=== PATIENT | male | born 1950 | race Caucasian/White ===

== ENCOUNTER 2018-02-22 09:14 | Emergency (ER) | payer MEDICARE, OTHER, SELFPAY ==
[2018-02-22 09:25] VITALS: BP 159/99; PULSE 68; RESP 18; TEMP 36.6; O2SAT 100
--- NOTE | 2018-02-22 10:11 | ED_ITS ---
HPI - Fall General Chief Complaint: Fall Stated Complaint: Fall and cut head Time Seen by Provider: 02/22/18 09:58 Source: patient and family Mode of arrival: ambulatory Limitations: no limitations History of Present Illness HPI Narrative: Patient was stepping out of the shower this morning when his right leg gave out and he fell, striking his head on the tile floor in his bathroom. Patient denies loss of consciousness. He states he was not injured in any other way. He has a laceration over the right superolateral orbital rim. Patient states that he has a longstanding history of a right lower extremity weakness, and had generally ambulates with crutches. He states that injury was about 2 hr ago, and he denies any new neurologic deficits since. complaint: fall Onset (ago): hour(s) Fall from: standing Fall witnessed: no Place fall occurred: home Loss of consciousness: none Prolonged down time: no Symptoms prior to fall: none Context: other ( see above) Location of injury: head Severity: mild Severity scale (1-10): 1 Associated symptoms (after fall): denies Related Data Home Medications Medication Instructions Recorded Confirmed celecoxib [Celebrex] 200 mg PO BID #0 cap 02/27/13 02/22/18 nadolol [Corgard] 40 mg OR Q DAY #0 12/20/15 02/22/18 cholecalciferol (vitamin D3) 2,000 unit PO DAILY 02/22/18 02/22/18 [Vitamin D3] oxycodone 1 tab PO Q6-8H PRN 02/22/18 02/22/18 testosterone cypionate 1 dose IM Q2W 02/22/18 02/22/18 Previous Rx's Medication Instructions Recorded naratriptan 2.5 mg tablet 2.5 mg PO .COMPLEX PRN #12 tab 01/06/18 Allergies Allergy/AdvReac Type Severity Reaction Status Date / Time Penicillins [PENICILLINS] Allergy Intermediate Verified 01/06/18 14:38 Review of Systems Review of Systems All systems reviewed & are unremarkable except as noted in HPI and below Constitutional Denies chills, Denies fever(s), Denies lethargy and Denies weakness Eyes Denies change in vision, Denies eye discharge, Denies irritation and Denies loss of vision ENT Ears, Nose, Mouth, and Throat: Denies change in voice, Denies neck pain and Denies sore throat Comments: facial laceration Cardiovascular Denies chest pain, Denies irregular heart rhythm, Denies lightheadedness, Denies palpitations, Denies dyspnea, Denies dyspnea on exertion and Denies orthopnea Respiratory Denies cough, Denies dyspnea, Denies dyspnea on exertion and Denies wheezing Gastrointestinal Gastrointestinal: Denies abdominal pain, Denies change in bowel habits, Denies diarrhea, Denies nausea and Denies vomiting Genitourinary Denies hematuria, Denies flank pain, Denies urinary incontinence and Denies urinary urgency Musculoskeletal Denies neck pain Integumentary/Breasts Denies pruritus, Denies erythema, Denies rash and Denies wounds Neurologic Denies confusion, Denies loss of vision and Denies weakness Psychiatric Denies anxiety, Denies confusion, Denies depression, Denies homicidal ideation and Denies suicidal ideation Endocrine Denies palpitations Hematologic/Lymphatic Denies easy bruising Allergic/Immunologic Denies wheezing Exam Initial Vital Signs Initial Vital Signs: Vital Signs Temperature 97.8 F 02/22/18 09:25 Pulse Rate 68 02/22/18 09:25 Respiratory Rate 18 02/22/18 09:25 Blood Pressure 159/99 H 02/22/18 09:25 Pulse Oximetry 100 02/22/18 09:25 Const General: cooperative and well developed Nutritional Appearance: well nourished Orientation: alert, awake, oriented x3 and not confused [facility] Head: normocephalic, No Soriano's sign, laceration (1 cm, superolateral orbital rim, with 2 cm diameter hematoma/swelling.), No palpable skull fracture and No periorbital ecchymosis Ears: external ears normal and TM's normal bilaterally Nose: external nose normal and No nasal discharge Face and sinus: sinuses nontender, face symmetric and No dry mucous membranes Mouth: oral mucosae normal and moist mucous membranes Teeth and gingiva: dentition normal Eyes General: appearance normal, both eyes and all related structures Eyelids: eyelids normal Conjunctivae: conjunctivae normal Sclera: sclerae normal Pupils: PERRL EOM: EOM intact bilaterally Neck Neck: normal visual inspection, trachea midline, No lymphadenopathy, No midline deformity and No JVD Lymphatic: No lymphedema Chest Chest: normal inspection of the chest Resp Effort & Inspection: normal respiratory effort, able to speak in complete sentences, no respiratory distress and no use of accessory muscles Auscultation: clear to auscultation bilaterally, no rales, no rhonchi and no wheezes Cardio Rate: regular rate Rhythm: regular rhythm Heart Sounds: no click, no gallops, no murmurs and no rubs Pulses: normal peripheral pulses GI Inspection: non-distended Palpation: soft, no hepatosplenomegaly, No guarding, No pulsatile mass and No tender Auscultation: normal bowel sounds Back/Spine/Pelvis Back: No CVA tenderness Cervical Spine: cervical ROM normal and No pain with cervical ROM Thoracic/Lumbar Spine: thoracic and lumbar spine normal to inspection Skin General: no rashes or lesions noted, No jaundice and No petechiae Neuro General: alert, oriented x3, gait normal and no focal motor deficits Speech: speech normal Extrem General: full ROM, no clubbing, cyanosis or edema, no pedal edema and no calf tenderness Psych Appearance: well kempt Mental Status: mental status grossly normal Attitude: cooperative Thought Content: normal and suicidality Judgment: judgment good [facility] Medical History HTN (hypertension) (Acute) Arthritis (Acute) Surgical History No pertinent past surgical history (Acute) Social History Smoking Status: Never smoker Procedures Laceration Repair Laceration 1: Site: face Side (If applicable): right Size (cm): 1 Description: linear Depth: simple, single layer Pre-repair: wound explored and irrigated extensively Skin layer closed with: other (Tissue adhesive and Steri-Strips) Course Course Narrative: Patient stated he had an allergy to numbing agents, and preferred to have adhesive repair of the laceration of possible. I felt that, given the characteristics of his laceration, this was reasonable. The laceration was repaired with Dermabond and Steri-Strips with good wound edge approximation. We have discussed home management of the wound, as well as the usual indications for return. Patient is neurologically intact, has a very focal injury, and I do not feel imaging is indicated at this time. Additionally he is not on any anticoagulants which would put him greater risk for intracranial hemorrhage. Vital Signs - 8 hr 02/22/18 09:25 Temperature 97.8 F Pulse Rate 68 Respiratory Rate 18 Blood Pressure 159/99 H Pulse Oximetry 100 MDM - Fall Medical Records Attestation: I reviewed the patient's medical records. Discharge Plan Departure Patient Disposition: Home Clinical Impression: Fall, Laceration Discharge Date/Time: 02/22/18 11:31 Interventions: ED Discharge Assessment Last Done: 02/22/18 11:30 Instructions: DI for Laceration Repair With Dermabond Prescriptions: No Action celecoxib [Celebrex] 200 MG capsule 200 mg PO BID Qty: 0 RF: 0 nadolol [Corgard] 20 MG tablet 40 mg OR Q DAY Qty: 0 RF: 0 oxycodone 5 mg tablet 1 tab PO Q6-8H PRN (Reason: pain) RF: 0 testosterone cypionate 200 mg/mL oil 1 dose IM Q2W RF: 0 cholecalciferol (vitamin D3) [Vitamin D3] 2,000 unit Capsule 2,000 unit PO DAILY RF: 0 naratriptan 2.5 mg tablet 2.5 mg PO .COMPLEX PRN (Reason: migraine headache) Qty: 12 RF: 11 Referrals: Oneida Chance PA-C [Primary Care Provider] -
[2018-02-22 10:15] VITALS: BP 129/80; PULSE 71; RESP 12; O2SAT 95
[2018-02-22 11:26] VITALS: BP 110/72; PULSE 61; RESP 14; O2SAT 97
== END 2018-02-22 11:31 | disposition home or self-care (01) ==
PROVIDERS: Emergency Provider Emergency Medicine; PCP Physician Assistant
DX: S01.81XA Laceration without foreign body of other part of head, initial encounter (principal); W01.198A Fall on same level from slipping, tripping and stumbling with subsequent striking against other object, initial encounter
CPT/HCPCS: 99282; 99283

== ENCOUNTER → 2020-08-17 11:04 | Outpatient (CLI) | payer MEDICARE, OTHER, SELFPAY ==
[2020-08-17 13:22] LABS: COVID19 -Nasal RAPID Negative (Negative)
== END ==
PROVIDERS: PCP Physician Assistant; Visit Provider Physician Assistant
DX: Z20.822 Contact with and (suspected) exposure to COVID-19 (principal)
CPT/HCPCS: 87635; C9803

== ENCOUNTER → 2020-09-05 08:44 | Outpatient (CLI) | payer MEDICARE, OTHER, SELFPAY ==
[2020-09-05 10:01] LABS: Creatine Kinase 67 U/L (55-170)
== END ==
PROVIDERS: PCP Physician Assistant; Referring Provider Internal Medicine Cardiovascular Disease; Visit Provider Internal Medicine Cardiovascular Disease
DX: E78.5 Hyperlipidemia, unspecified (principal)
CPT/HCPCS: 36415; 82550

== ENCOUNTER → 2020-10-29 08:48 | Outpatient (CLI) | payer MEDICARE, OTHER, SELFPAY ==
[2020-10-29 10:10] LABS: Add Manual Diff / Slide Review NO; Basophils Absolute Auto 0 /uL (0-100); Basophils Percent Auto 0.6 % (0-2); Eosinophils Absolute Auto 100 /uL (0-450); Eosinophils Percent Auto 1.8 % (2-4); Hematocrit 42.3 % (41-53); Hemoglobin 14.1 g/dL (13.5-17.5); Lymphocytes Absolute Auto 1000 /uL (1100-4500); Lymphocytes Percent Auto 17.7 % (25-40); Mean Corpuscular HGB Conc 33.3 % (30-36); Mean Corpuscular Volume 93.1 fL (80-100); Monocytes Absolute Auto 600 /uL (0-900); Monocytes Percent Auto 9.7 % (3-14); Neutrophils Absolute Auto 4100 /uL (1500-7000); Neutrophils Percent Auto 70.2 % (50-75); Platelet Count 174 X10^3/uL (150-400); Red Blood Cell Count 4.54 X10^6/uL (4.5-5.9); Red Cell Distribution Width 13.5 % (11.6-14.8); White Blood Cell Count 5.8 X10^3/uL (4.5-11.0)
[2020-10-29 10:58] LABS: Blood Urea Nitrogen 17 mg/dL (9-20); Calcium 9.5 mg/dL (8.4-10.2); Carbon Dioxide 27 mmol/L (22-32); Chloride 102 mmol/L (98-107); Estimated Glomerular Filt Rate > 60.0 mL/min (>60); Glucose 115 mg/dL (80-110); HEMOLYSIS 20 (0-50); Potassium 4.7 mmol/L (3.4-5.1); Sodium 138 mmol/L (137-145)
== END ==
PROVIDERS: PCP Family Medicine; Referring Provider Internal Medicine Cardiovascular Disease; Visit Provider Internal Medicine Cardiovascular Disease
DX: I25.10 Atherosclerotic heart disease of native coronary artery without angina pectoris (principal)
CPT/HCPCS: 36415; 80048; 85025

== ENCOUNTER → 2020-12-04 14:36 | Outpatient (CLI) | payer MEDICARE, OTHER, SELFPAY ==
--- NOTE | 2020-12-04 14:38 | DI.ECHO.S_ITS ---
[facility] +---------+ : : [address] : : : : [id number] : : : : Phone: [phone] Echocardiogram Report + + :Name: ALIS THORPE Study Date: 12/04/2020 Height: 70.5 in: [facility] ReadingLocation: Weight: 162 lb : : Gender: Male BSA: 1.9 m2 : :: 1950 Age: 70 yrs BP: 151/85 mmHg: :Reason For Study: ISCHEMIC CARDIOMYOPATHY : :Ordering Physician: LUIS A, : :MARA Performed By: Beatrice Pettit : :Referring: MARA GUNN : + + Interpretation Summary The left ventricle is normal in size and wall thickness. The ejection fraction is estimated to be 55-60%. Compared to the prior exam, the left ventricular function is improved. Compared to the prior exam, the apical wall motion abnormality is improved. The right ventricle is normal in size and function. Ascending aorta diameter 3.4 cm. Previously it was 3.6 cm. Procedure: A two-dimensional transthoracic echocardiogram with color flow and Doppler was performed in limited views only to assess ejection fraction and ascending aorta.. The study quality was technically adequate. Comparison is made with the echocardiogram of 06/07/2019. The patient was in sinus bradycardia with heart rates between 54-58 bpm during the exam. Left Ventricle: The left ventricle is normal in size and wall thickness. There is no thrombus. The ejection fraction is estimated to be 55-60%. Compared to the prior exam, the left ventricular function is improved. There are no focal wall motion abnormalities. Compared to the prior exam, the apical wall motion abnormality is improved. Right Ventricle: The right ventricle is normal in size and function. Atria: The left atrial size is normal. The left atrium has remained unchanged in size since the prior echo exam. Right atrial size is normal. Great Vessels: The ascending aorta is at the upper limits of normal in size. Pericardium/ Pleura There is no pericardial effusion. There is no pleural effusion. MMode/2D Measurements & Calculations LVIDd: 4.3 cm asc Aorta Diam: 3.4 cm LVIDs: 3.2 cm FS: 24.5 % IVSd: 0.97 cm LVPWd: 0.81 cm LV degroot. diameter/BSA (cm/m^2): 2.2 LV sys. diameter/BSA (cm/m^2): 1.7 LA A2 area: 11.4 cm2 RA long axis: 4.6 cm LA A4 area: 11.5 cm2 RA area: 13.4 cm2 LA length (vol): 4.0 cm RA vol: 33.6 ml LA vol: 28.0 ml RA : 17.5 ml/m2 LA vol index: 14.6 ml/m2 RVD1 (basal): 3.6 cm TAPSE: 1.7 cm Reading Physician:12:04 PM
== END ==
PROVIDERS: PCP Family Medicine; Referring Provider Internal Medicine Cardiovascular Disease; Visit Provider Internal Medicine Cardiovascular Disease
DX: I25.5 Ischemic cardiomyopathy (principal)
CPT/HCPCS: 93307

== ENCOUNTER 2021-02-06 08:30 | Outpatient (RCR) | payer MEDICARE, OTHER, SELFPAY ==
--- OUTSIDE RECORDS SUMMARY | 2020-12-26 08:21 | XMS_ITS | Referral Summary ---
:1950 Author Organization [facility] Address [address] [place] [address] Care Team Providers Name Role Phone Sreedhar Primary Care Provider Reason for Referral Rehabilitation - Outpatient (Routine) Status Reason Specialty Diagnoses / Referred By Referred To Procedures Contact Contact Closed Cardiac Rehabilitation Diagnoses History of heart artery stent History of acute anterior wall [place] Dayna [facility] MD Lulú [address] [place] [address] [phone] [id number] [place], [place] Phone: [phone] Electronically signed by Miguel Mcintosh MD at Reason for Visit Reason Onset Date Comments Forms/questionnaires 08/15/2020 Encounter Details Date Type Department Care Team Description 08/15/[address] [facility] Miguel Mcintosh , Forms/questionnaires Cardiology Camacho LIRIANO [address] [place] [address], [address] [place] [phone] [address] [place], [place] [id number] Allergies Active Allergy Reactions Severity Noted Date Comments Buprenorphine Ketorolac Monosodium Glutamate Nsaids (Non-Steroidal 09/19/2014 Anti-Inflammatory Drug) Penicillins Anaphylaxis, Rash High 02/09/2014 Has done o k with Keflex. ?? Has done ok wit h Keflex. ?? Pregabalin 01/10/2016 Other reaction( s): Other (Comment) intolerance Sodium Metabisulfite Other (see comments) Found in food and anesthetics (fo und in lidocaine per p t). Thready, rapid breath and SALES MGR symptom s (tremors, shake s, sometimes rash) Tolmetin 09/19/2014 documented as of this encounter (statuses as of 12/25/2020) Medications Medication Sig Dispensed Refills Start Date End Date Status cholecalciferol, Take 1 0 Act lori vitamin D3, 2,000 tablet by unit capsule mouth daily oxyCODONE TAKE ONE 0 12/09/2016 Active (ROXICODONE) 5 mg TABLET BY immediate release MOUTH EVERY tablet 6 TO 8 HOURS IF NEEDED FOR PAIN FOR 30 DAYS coenzyme Q10 400 Take 1 0 Act lori mg capsule tablet by mouth daily aspirin 81 mg Take 1 30 tablet 3 06/11/2020 Activ e chewable tablet tablet (81 2 mg total) by mouth daily nitroglycerin Place 1 90 tablet 1 06/10/2020 Activ e (NITROSTAT) 0.4 mg tablet (0.4 2 SL tablet mg total) under the tongue every 5 (five) minutes as needed for chest pain metoprolol Take 1 180 tablet 3 06/24/2020 Active succinate XL tablet (50 2 (TOPROL-XL) 50 mg mg total) by 24 hr tablet mouth 2 (two) times a day rosuvastatin Take 1 90 tablet 3 06/24/2020 Active (CRESTOR) 5 mg tablet (5 mg 2 tablet total) by mouth nightly lisinopriL Take 1 90 tablet 3 06/24/2020 Active (PRINIVIL) 2.5 mg tablet (2.5 2 tablet mg total) by mouth nightly clopidogreL Take 1 90 tablet 3 06/24/2020 Active (PLAVIX) 75 mg tablet (75 2 tablet mg total) by mouth daily evolocumab 140 Inject 140 2 mL 11 08/08/2020 Dis continued mg/mL pen injector mg under the 1 (Side effects) skin every 14 (fourteen) days documented as of this encounter (statuses as of 12/25/2020) Active Problems Problem Noted Date RSD (reflex sympathetic dystrophy) 02/15/2018 Posterior tibial tendon tear, traumatic, right, sequel a 05/09/2015 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 Metatarsalgia of right foot 04/02/2015 Overview: Overview: Problem List [employer] Posterior tibial nerve injury, right, initial encounte r 04/02/2015 documented as of this encounter (statuses as of 12/25/2020) Social History Tobacco Use Types Packs/Day Years Used Date Former Smoker Cigarettes Quit: 05/05/19 80 Smokeless Tobacco: Never Used Alcohol Use Standard Drinks/Week Comments Yes 0 (1 standard drink = 0.6 oz pure alcoho l) rarely Sex Assigned at Date Recorded Not on file Job Start Date Occupation Industry Not on file Not on file Not on file documented as of this encounter Miscellaneous Notes Telephone Encounter - Мария Zaman MA - 08/20/2020 4:50 PM PDT Updated order has been faxed to [facility]. elephone Encounter - Miguel Mcintosh MD - 08/19/2020 9:40 PM PDT Done Addendum Note - Miguel Mcintosh MD - 08/19/2020 9:40 PM PDT Addended by: MIGUEL MCINTOSH on: 08/19/2020 09:40 PM Modules accepted: Orders Telephone Encounter - Miguel Mcintosh MD - 08/19/2020 9:38 PM PDT Done. Telephone Encounter - Мария Zaman MA - 08/19/2020 10:33 AM PDT Ca you please update Cardiac Rehab referral for instead of [facility]? Once done I can fax order back. Thanks! elephone Encounter - Verito Dumas - 08/19/2020 10:06 AM PDT Thelma from cardiac rehab called to see if order has been entered yet. She staes that patient is scheduled for intake tomorrow at 9:30 and without order they will not be able to see patient. Can you please call her back at [phone] and advise if PAR or another doctor can order? Thank you elephone Encounter - Yina Cueto - 08/15/2020 10:01 AM PDT Received semi-urgent cardiac rehab order for pt. Emailed to Мария. documented in this encounter Plan of Treatment Upcoming Encounters Date Type Specialty Care Team Description 05/06/2021 Office Visit Cardiology Vincenzo Richmond MD [address] [facility] [address] [place] [address] [phone] Scheduled Referrals Name Type Priority Associated Order Schedule Diagnoses XTRNL Referral to Outpatient Referral Routine History of heart Ordered: Cardiac Rehabilitation artery st ent 08/19/2020 History of acute anterior wall [place] documented as of this encounter Implants Implanted Type Area Strategic Manager Device Shelf Model / Identifier Expiration Date Ser ial / Lot Stent Xiencyesseina Beniteza 3.25*12 - [id number] Stent N/A: Heart MELCHOR [id number] / Implanted: Qty: 1 on 06/07/2020 at [facility] / [id number] documented as of this encounter Visit Diagnoses Diagnosis History of heart artery stent - Primary History of acute anterior wall [place] documented in this encounter Insurance Payer Benefit Plan / Subscriber ID Effective Dates Phone Addre ss Type Group MEDICARE MEDICARE PART A [id number] 2014-Present AND B [facility] [id number] 2017-Present SUPP SUPP documented as of this encounter Advance Directives Documents on File Type Date Recorded 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
== END 2021-02-06 10:30 ==
LOC: CAR 08:30
PROVIDERS: PCP Physician Assistant; Referring Provider Internal Medicine Cardiovascular Disease; Visit Provider Internal Medicine Cardiovascular Disease
DX: Z95.5 Presence of coronary angioplasty implant and graft (principal)
CPT/HCPCS: 93798

== ENCOUNTER → 2022-03-09 07:27 | Outpatient (CLI) | payer MEDICARE, OTHER, SELFPAY ==
--- NOTE | 2022-03-09 | DI.US.S_ITS ---
PROCEDURE: US ABD AORTA ANEURYSM SCREEN INDICATIONS: Encounter for screening for cardiovascular disorde TECHNIQUE: Real time scanning was performed of the aorta and iliac arteries, with image documentation. COMPARISON: None. FINDINGS: Aorta: Proximal aortic diameter measures 2.4 cm. Mid-aorta measures 2.0 cm. Distal aortic diameter is 1.9 cm. Iliac arteries: Right common iliac artery measures 1.4 cm. Left common iliac artery measures 1.2 cm. IMPRESSION: 1. No evidence of abdominal aortic or common iliac artery aneurysm. Dictated by: Harini Acuña M.D. on 03/09/2022 at 9:16 Approved by: Harini Acuña M.D. on 03/09/2022 at 9:16
== END ==
PROVIDERS: PCP Family Medicine; Referring Provider Family Medicine; Visit Provider Family Medicine
DX: Z13.6 Encounter for screening for cardiovascular disorders (principal)
CPT/HCPCS: 76706

== ENCOUNTER → 2022-06-15 15:26 | Outpatient (CLI) | payer MEDICARE, OTHER, SELFPAY ==
--- NOTE | 2022-06-15 15:28 | DI.US.S_ITS ---
PROCEDURE: US THYROID INDICATIONS: LOW TSH TECHNIQUE: Real-time scanning was performed of the thyroid gland, with image documentation. COMPARISON: None. FINDINGS: Right: Thyroid lobe measures 7 x 3 x 3.8 cm, and is homogeneous in echotexture. Left: Thyroid lobe measures 7.6 x 2.9 x 2.9 cm, and is homogenous in echotexture. Isthmus: 4.9 mm thick. No discrete thyroid nodule is seen. No neck soft tissue lymphadenopathy. IMPRESSION: 1. Enlarged thyroid gland. No discrete thyroid nodule is seen. 2. No neck soft tissue lymphadenopathy. ACR TI-RADS definitions and recommendations: TI-RADS 1 (benign): 0 points. FNA not needed. TI-RADS 2 (not suspicious): 2 points. FNA not needed. TI-RADS 3 (mildly suspicious): 3 points. * FNA if 2.5 cm or larger, follow up if 1.5 cm or larger (at 1, 3, and 5 years). TI-RADS 4 (moderately suspicious): 4-6 points. * FNA if 1.5 cm or larger, follow up if 1 cm or larger (at 1, 2, 3, and 5 years). TI-RADS 5 (highly suspicious): 7 points or more. * FNA if 1 cm or larger, follow up if 0.5 cm or larger (every year for 5 years). Dictated by: Win Boone M.D. on 06/15/2022 at 16:46 Approved by: Win Boone M.D. on 06/15/2022 at 16:47
== END ==
PROVIDERS: PCP Family Medicine; Referring Provider Family Medicine; Visit Provider Family Medicine
DX: E04.9 Nontoxic goiter, unspecified; R79.89 Other specified abnormal findings of blood chemistry
CPT/HCPCS: 76536

== ENCOUNTER → 2022-08-31 | Outpatient (CLI) | payer MEDICARE, OTHER, SELFPAY ==
--- NOTE | 2022-08-31 15:52 | DI.RAD.S_ITS ---
PROCEDURE: XR HAND RT MIN 3V INDICATIONS: HAND PAIN TECHNIQUE: 3 views of the hand(s) acquired. COMPARISON: None. FINDINGS: Bones: No fractures or dislocations. Carpal bones are normally aligned. No suspicious bony lesions. Polyarticular joint space narrowing with periarticular osteophyte formation, severe involving the 1st CMC joint. Juxta-articular lucencies involve the 1st CMC joint, the 1st, 2nd and 5th MCP joints as well as multiple interphalangeal joints. Calcifications seen adjacent to the 2nd through 5th PIP joints likely capsular calcification. Soft tissues: No suspicious soft tissue calcifications. 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 Dictated by: Omid MONTAÑO Interpreted: Santo Ibarra MD on 08/31/2022 at 16:28 Transcribed by: BIANKA on 09/02/2022 at 15:23 Approved by: Sourav Ibarra M.D. on 09/02/2022 at 16:23
== END ==
LOC: RAD 15:49
PROVIDERS: PCP Family Medicine; Referring Provider Family Medicine; Visit Provider Family Medicine
DX: M18.11 Unilateral primary osteoarthritis of first carpometacarpal joint, right hand (principal); M79.641 Pain in right hand
CPT/HCPCS: 73130

== ENCOUNTER 2023-08-12 07:09 | Day surgery (SDC) | payer MEDICARE, OTHER, SELFPAY ==
[2023-08-12 07:50] VITALS: BP 137/70; PULSE 68; RESP 18; TEMP 36.8; O2SAT 99
[2023-08-12] MEDS: LACTATED RINGERS 1,000 ML 42 ML IV (07:56)
--- NOTE | 2023-08-12 08:27 | P.HP_ITS ---
History of Present Illness History of Present Illness Date Patient Seen: 08/12/23 Time Patient Seen: 08:27 Chief complaint: Colonoscopy Narrative: Bahman is a 73-year-old man who is here for a screening colonoscopy. His last 1 was about 11 years ago. He has never had any abnormalities found. His mother had colon cancer in her 70s. [facility] Medical History (Updated 08/12/23 @ 08:28 by Casa Keith MD) Myocardial infarct Diverticulitis Post-polio syndrome HTN (hypertension) Arthritis Surgical History No pertinent past surgical history Social History Smoking Status: Former smoker alcohol intake: current Meds Home Medications and Allergies Home Medications Medication Instructions Recorded Confirmed Type cholecalciferol (vitamin D3) 50 3,000 unit PO DAILY 02/22/18 08/12/23 History mcg (2,000 unit) capsule (Vitamin D3) oxycodone 5 mg tablet 1 tab PO Q6-8H PRN pain 02/22/18 08/12/23 History aspirin 325 mg capsule 325 mg PO DAILY 08/12/23 08/12/23 History lisinopril 2.5 mg tablet 2.5 mg PO DAILY 08/12/23 08/12/23 History metoprolol succinate 50 mg 50 mg PO BID 08/12/23 08/12/23 History tablet,extended release 24 hr Allergies Allergy/AdvReac Type Severity Reaction Status Date / Time Penicillins [PENICILLINS] Allergy Intermediate child-unsur Verified 08/12/23 07:39 e NSAIDS (Non-Steroidal AdvReac Intermediate confusion, Verified 08/12/23 07:39 Anti-Inflamma rash, panic attack Exam Vital Signs (past 8 hours): - 08/12/23 07:50 Temperature 98.2 F Pulse Rate 68 Respiratory Rate 18 Blood Pressure 137/70 Pulse Oximetry 99 Oxygen Delivery Method Room Air Oxygen Delivery Method Room Air Const General: healthy appearing Resp Effort & Inspection: normal respiratory effort Assessment & Plan Assessment and plan (1) Colon cancer screening: Status: Acute Plan We reviewed the risks and benefits of colonoscopy for colon cancer screening and he would like to proceed.
--- NOTE | 2023-08-12 09:03 | PM.OP.COLON ---
Operative Date/Time/Diagnoses Date of procedure: 08/12/23 Time of procedure: 09:03 Pre-op diagnosis: Colon cancer screening Post-op diagnosis: same Procedure & Clinicians Study performed: Colonoscopy Same procedure as scheduled: Yes Surgeon: Casa Keith Procedure Notes Procedure in detail: Surgeon: Casa Keith MD Anesthesia: Kary Rutherford CRNA Procedure: The patient was brought to the endoscopy suite, placed in left lateral decubitus position. The patient was connected to monitoring devices. A time-out was performed. Sedation was administered. Once the patient was adequately sedated, a digital rectal exam was performed and was normal. The scope was then inserted and advanced to the cecum where the appendiceal orifice was identified and photographed. The scope was then slowly withdrawn over greater than 6 minutes. The mucosa was thoroughly inspected. There was a 4 mm polyp in the transverse colon removed with a cold snare. There was moderate sigmoid diverticulosis. There was a 4 mm polyp in the mid rectum removed with a cold snare. The scope was retroflexed in the rectum. Other abnormalities were seen. The scope was straightened and removed. The patient was awakened and brought to recovery. Scope withdrawal time: 9 minutes Sedation time: 13 minutes EBL: 5 mL Findings: 4 mm transverse polyp, sigmoid diverticulosis, 4 mm rectal polyp Post-procedure Disposition: PACU
[2023-08-12 09:07] VITALS: BP 102/60; PULSE 55; RESP 10; TEMP 36.6; O2SAT 100
[2023-08-12 09:12] VITALS: BP 102/58; PULSE 55; RESP 12; O2SAT 100
[2023-08-12 09:17] VITALS: BP 104/59; PULSE 57; RESP 10; TEMP 36.7; O2SAT 100
[2023-08-12 09:22] VITALS: BP 114/64; PULSE 55; RESP 12; O2SAT 100
--- NOTE | 2023-08-24 | PATH_ITS ---
[facility] Accession Number: [id number] . 01 Material submitted: . PART A: colon - TRANSVERSE POLYP PART B: rectum - RECTUM POLYP . 01 Diagnosis: Part A: TRANSVERSE POLYP: Tubular adenoma. . Part B: RECTUM POLYP: Tubular adenoma. [facility] 08/17/202343 Local . 01 Electronically signed: . Stanton Hurtado MD, Pathologist NPI- [id number] . 01 Gross description: . Part A: TRANSVERSE POLYP: Received in formalin is 1 fragment(s) of mai, soft tissue measuring 0.7 x 0.3 x 0.2 cm submitted entirely in 1 cassette(s) . Part B: RECTUM POLYP: Received in formalin is 1 fragment(s) of mai, soft tissue measuring 0.3 x 0.3 x 0.3 cm submitted entirely in 1 cassette(s) /KAYLEIGH 08/17/2023942 Local . 01 Pathologist provided ICD-10: D12.3 . 01 CPT . 944693, 560393 Performed at: 01 [facility] [address] [place] [address], [place], [place] [id number] MD Stanton Hurtado MD Phone: [phone]
== END 2023-08-12 10:31 | disposition home or self-care (01) ==
PROVIDERS: PCP Family Medicine; Referring Provider Surgery; Visit Provider Surgery
PROC: 0DJD8ZZ Inspection of Lower Intestinal Tract, Via Natural or Artificial Opening Endoscopic (ICD-10-PCS; CPT 45378; principal; 2023-08-12 08:30)
DX: Z12.11 Encounter for screening for malignant neoplasm of colon (principal); K57.30 Diverticulosis of large intestine without perforation or abscess without bleeding; D12.3 Benign neoplasm of transverse colon; D12.8 Benign neoplasm of rectum
CPT/HCPCS: 45385; J2704

== ENCOUNTER → 2024-05-29 11:38 | Outpatient (CLI) | payer MEDICARE, OTHER, SELFPAY ==
--- NOTE | 2024-05-29 | DI.RAD.S_ITS ---
PROCEDURE: XR HAND RT MIN 3V INDICATIONS: Pain in joints of right hand TECHNIQUE: 3 views of the hand(s) acquired. COMPARISON: [facility], CR, XR HAND RT MIN 3V, 08/31/2022, 16:03. FINDINGS: Bones: No fractures or dislocations. Carpal bones are normally aligned. No suspicious bony lesions. Interphalangeal joint space narrowing with osteophytosis. 1st CMC joint space narrowing with associated osteophytosis and sclerosis. Soft tissues: No suspicious soft tissue calcifications. 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 Dictated by: Aidan Mukherjee M.D. on 05/29/2024 at 15:29 Approved by: Aidan Mukherjee M.D. on 05/29/2024 at 16:05
== END ==
PROVIDERS: PCP Family Medicine; Referring Provider Family Medicine; Visit Provider Family Medicine
DX: M18.11 Unilateral primary osteoarthritis of first carpometacarpal joint, right hand (principal); M25.541 Pain in joints of right hand
CPT/HCPCS: 73130